=== PATIENT | female | born 1975 | race Caucasian/White ===

== ENCOUNTER 2017-01-06 22:29 | Emergency (ER) | payer OTHER ==
[~2017-01-06] VITALS: Ht 162.6 cm; Wt 59.0 kg
--- NOTE | 2017-01-06 23:45 | ED CARDIAC/CP/PALPITATIONS ---
History of Present Illness General Chief Complaint: Chest Pain Stated Complaint: PT HAVING A CHEST PAIN Source: patient Exam Limitations: no limitations Vital Signs & Intake/Output Vital Signs & Intake/Output Vital Signs Date Time Temp Pulse Resp B/P Pulse O2 O2 Flow FiO2 Ox Delivery Rate 01/07 0340 97.0 88 18 118/72 99 Room Air 01/06 2237 97.9 86 16 120/76 98 Room Air ED Intake and Output 01/07 0000 01/06 1200 Intake Total Output Total Balance Patient 130 lb Weight Allergies Coded Allergies: No Known Allergies (01/06/17) Triage Note: RECEIVED 41 YO FEMALE C/O UPPER ANTERIOR CHEST CRAMPING P[AIN, STARTED ABOUT 30 [address] [employer]ENT. PT REPORTS SOME SOB. NO NAUSEA, DIAPHORESIS Triage Nurses Notes Reviewed? yes Onset: Abrupt Duration: minute(s):, gone now Timing: single episode today Quality/Severity: moderate Location: central Radiation: no radiation Activities at Onset: none Modifying Factors: Improves With: rest. Associated Symptoms: pain with deep inspiration : No Patient currently breastfeeds: No HPI: 41 yo woman h/o celiac disease, in prior good health, presents with 20 minutes of substernal chest pain, approximately 30 minutes prior to arrival. She notes, "it was hard to catch my breath." The discomfort was "heavy," non radiating, without diaphoresis or syncopal symptoms. She arrived to ED chest pain free. Past History Travel History Traveled to [place] past 21 day No Medical History Any Pertinent Medical History? see below for history Neurological: NONE EENT: NONE Cardiovascular: NONE Respiratory: NONE Gastrointestinal: CELIAC DISEASE Hepatic: NONE Renal: NONE Musculoskeletal: NONE Psychiatric: NONE Endocrine: NONE Blood Disorders: NONE Cancer(s): NONE Surgical History Surgical History: none Psychosocial History What is your primary language Azeri Tobacco Use: Never used Family History Hx Contributory? No Employment History Past Employment History Unobtainable at this time Review of Systems Review of Systems Constitutional: Reports: no symptoms. EENTM: Reports: no symptoms. Respiratory: Reports: no symptoms. Cardiovascular: Reports: no symptoms. GI: Reports: no symptoms. Genitourinary: Reports: no symptoms. Musculoskeletal: Reports: no symptoms. Skin: Reports: no symptoms. Neurological/Psychological: Reports: no symptoms. Hematologic/Endocrine: Reports: no symptoms. Immunologic/Allergic: Reports: no symptoms. All Other Systems: Reviewed and Negative Physical Exam Physical Exam General Appearance: well developed/nourished, mild distress Head: atraumatic, normal appearance Eyes: Bilateral: normal appearance. Ears, Nose, Throat: normal pharynx, normal ENT inspection Neck: normal inspection, supple, full range of motion Respiratory: normal breath sounds, chest non-tender, no respiratory distress, quiet respiration, lungs clear Cardiovascular: regular rate/rhythm Gastrointestinal: normal bowel sounds, soft, non-tender, no organomegaly Back: normal inspection, normal range of motion Extremities: normal inspection, normal capillary refill, normal range of motion, no edema Neurologic/Psych: no motor/sensory deficits, awake, alert, oriented x 3 Skin: intact, normal color, warm/dry Core Measures ACS in differential dx? No Severe Sepsis Present: No Septic Shock Present: No Progress Differential Diagnosis: AMI, CHF/pulm edema, costochondritis, musculoskeletal pain, pneumonia, pulmonary embolism Plan of Care: Orders Procedure Date/time Status TROPONIN LEVEL 01/07 0200 Complete EKG 01/07 0200 Active TROPONIN LEVEL 01/061 Complete LIPASE 01/061 Complete HEPATIC FUNCTION PANEL 01/061 Complete HUMAN BETA HCG SCREEN 01/06 2311 Complete D-DIMER 01/06 2311 Complete CBC WITHOUT DIFFERENTIAL 01/061 Complete BASIC METABOLIC PANEL 01/06 2311 Complete AMYLASE 01/06 2311 Complete EKG 01/06 2233 Active Laboratory Tests 01/07/17 0231: Troponin I < 0.01 01/07/17 0000: Anion Gap 11, Estimated GFR > 60, BUN/Creatinine Ratio 18.6, Glucose 119 H, Calcium 9.2, Total Bilirubin 0.3, Direct Bilirubin 0, AST 16, ALT 23, Alkaline Phosphatase 55, Troponin I < 0.01, Total Protein 7.2, Albumin 4.1, Amylase 60, Lipase 183, Total Beta HCG NEGATIVE, D-Dimer 268 H, CBC w Diff NO MAN DIFF REQ, RBC 3.97 L, MCV 92.3, MCH 32.2 H, RDW 12.4, MPV 8.4, Gran % 69.4, Lymphocytes % 19.3 L, Monocytes % 10.1 H, Eosinophils % 1.1, Basophils % 0.1, Absolute Granulocytes 4.8, Absolute Lymphocytes 1.3, Absolute Monocytes 0.7 H, Absolute Eosinophils 0.1, Absolute Basophils 0, PUBS MCHC 34.9 Diagnostic Imaging: Viewed by Me: CT Scan. Discussed w/RAD: CT Scan. Radiology Impression: chest angio... punctate nodules... no PE Initial ED EKG: normal axis, normal intervals, normal p-waves, normal QRS complex, normal sinus rhythm Repeat EKG: unchanged Comments: PATIENT: LEONORA LI PRESENT AGE: 41 PATIENT ACCOUNT NO: [id number] : 74 LOCATION: [facility] ORDERING PHYSICIAN: WING LOCKE MD SERVICE DATE: 01/07/17 EXAM TYPE: CAT - CTA CHEST-PULMONARY EMBOLISM EXAMINATION: CT PULMONARY EMBOLISM STUDY CLINICAL INFORMATION: Chest pain. Positive d-dimer. COMPARISON: None. TECHNIQUE: Contiguous helical images of the chest were obtained following the administration of IV contrast. Multiplanar reconstructions were performed. MIPS were obtained and reviewed. DLP: 187 mGy-cm. CONTRAST: 71 mL of Optiray 350 were administered without incident. FINDINGS: The heart is of normal size. There is no pericardial effusion. The great vessels are unremarkable. Specifically, there is no pulmonary arterial filling defect. There is no CT evidence for pulmonary embolism. There are no chest wall masses. Review of lung windows demonstrates that there are neither pleural effusions nor pneumothoraces. There are no consolidations. Within each lung, there are numerous punctate nodular densities. Specifically, within the right upper lobe on image 132/431, there is a 2 mm nodular density. Within the anterior right middle lobe on image 232, there is a 3 mm nodule. Within the left upper lobe on image 113, there is a 2 mm nodular density. Limited evaluation of the upper abdomen demonstrates that the liver is of normal size and attenuation without focal lesions. Normal adrenal glands are identified. IMPRESSION: No CT evidence for pulmonary embolism. Several punctate nodular densities bilaterally. Various management parameters for solitary pulmonary nodules are in the literature. According to the Fleischner Society, recommendations for pulmonary nodules are as follows: Nodule size < or = to 4 mm in LOW RISK PATIENTS: No follow up needed. Nodule size < or = to 4 mm in HIGH RISK PATIENTS: Follow up CT at 12 months; if unchanged, no further follow up. Nodule size > 4-6 mm in LOW RISK PATIENTS: Follow up CT at 12 months; if unchanged, no further follow up. Nodule size > 4-6 mm in HIGH RISK PATIENTS: Initial follow up CT at 6-12 months, then at 18-24 months if no change. Nodule size > 6-8 mm in LOW RISK PATIENTS: Initial follow up CT at 6-12 months, then at 18-24 months if no change. Nodule size > 6-8 mm in HIGH RISK PATIENTS: Initial follow up CT at 3-6 months, then 9-12 months and 24 months if no change. Nodule size > 8 mm in LOW RISK PATIENTS: Follow up CT at around 3, 9, and 24 months, dynamic contrast-enhanced CT, PET, and/or biopsy. Nodule size > 8 mm in HIGH RISK PATIENTS: Same as for low-risk patients. DICTATED BY: KEV KWON MD DATE/TIME DICTATED:01/07/17146 CLASSIFICATION COUNSELOR:WENDY DATE/TIME TRANSCRIBED:01/07/17146 CONFIDENTIAL, DO NOT COPY WITHOUT APPROPRIATE AUTHORIZATION. <Electronically signed in Other Vendor System> SIGNED BY: KEV KWON MD 01/07/17 0158 Departure Departure Disposition: HOME OR SELF CARE Condition: Stable Clinical Impression Primary Impression: Chest pain Referrals: JAZMIN STOVER MD (PCP/Family) Departure Forms: Customer Survey General Discharge Information Comments 01/07/17, 3am - pt chest pain free in ED. troponin neg x 2, ct angio notable for pulmonary nodules... discussed at length with patient. She feels safe going home. She is low risk for coronary artery disease. 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 Close follow up advised. Critical Care Note Critical Care Note Critical Care Time: non-applicable
[2017-01-07 00:17] LABS: ABSOLUTE BASOPHIL COUNT 0 /CUMM (0.0-0.2); ABSOLUTE EOSINOPHIL COUNT 0.1 /CUMM (0.0-0.7); ABSOLUTE GRANULOCYTE CT 4.8 /CUMM (1.4-6.5); ABSOLUTE LYMPH COUNT 1.3 /CUMM (1.2-3.4); ABSOLUTE MONOCYTE COUNT 0.7 /CUMM (0.10-0.60); BASOPHIL % 0.1 % (0.0-2.0); EOSINOPHIL % 1.1 % (0-5); GRANULOCYTE % 69.4 % (42.2-75.2); HEMATOCRIT 36.6 % (37-47); MEAN CORPUSCULAR HGB 32.2 PG (27.0-31.0); MEAN CORPUSCULAR HGB CONC 34.9 G/DL (33.0-37.0); MEAN CORPUSCULAR VOLUME 92.3 FL (81.0-99.0); MEAN PLATELET VOLUME 8.4 FL (7.4-10.4); PLATELET COUNT 237 /CUMM (130-400); RBC DISTRIBUTION WIDTH 12.4 % (11.5-14.5); RED BLOOD CELL CT 3.97 /CUMM (4.20-5.40); WHITE BLOOD CELL COUNT 6.9 /CUMM (4.8-10.8)
--- NOTE | 2017-01-07 01:58 | CT SCAN REPORT ---
EXAMINATION: CT PULMONARY EMBOLISM STUDY CLINICAL INFORMATION: Chest pain. Positive d-dimer. COMPARISON: None. TECHNIQUE: Contiguous helical images of the chest were obtained following the administration of IV contrast. Multiplanar reconstructions were performed. MIPS were obtained and reviewed. DLP: 187 mGy-cm. CONTRAST: 71 mL of Optiray 350 were administered without incident. FINDINGS: The heart is of normal size. There is no pericardial effusion. The great vessels are unremarkable. Specifically, there is no pulmonary arterial filling defect. There is no CT evidence for pulmonary embolism. There are no chest wall masses. Review of lung windows demonstrates that there are neither pleural effusions nor pneumothoraces. There are no consolidations. Within each lung, there are numerous punctate nodular densities. Specifically, within the right upper lobe on image 132/431, there is a 2 mm nodular density. Within the anterior right middle lobe on image 232, there is a 3 mm nodule. Within the left upper lobe on image 113, there is a 2 mm nodular density. Limited evaluation of the upper abdomen demonstrates that the liver is of normal size and attenuation without focal lesions. Normal adrenal glands are identified. IMPRESSION: No CT evidence for pulmonary embolism. Several punctate nodular densities bilaterally. Various management parameters for solitary pulmonary nodules are in the literature. According to the Fleischner Society, recommendations for pulmonary nodules are as follows: Nodule size < or = to 4 mm in LOW RISK PATIENTS: No follow up needed. Nodule size < or = to 4 mm in HIGH RISK PATIENTS: Follow up CT at 12 months; if unchanged, no further follow up. Nodule size > 4-6 mm in LOW RISK PATIENTS: Follow up CT at 12 months; if unchanged, no further follow up. Nodule size > 4-6 mm in HIGH RISK PATIENTS: Initial follow up CT at 6-12 months, then at 18-24 months if no change. Nodule size > 6-8 mm in LOW RISK PATIENTS: Initial follow up CT at 6-12 months, then at 18-24 months if no change. Nodule size > 6-8 mm in HIGH RISK PATIENTS: Initial follow up CT at 3-6 months, then 9-12 months and 24 months if no change. Nodule size > 8 mm in LOW RISK PATIENTS: Follow up CT at around 3, 9, and 24 months, dynamic contrast-enhanced CT, PET, and/or biopsy. Nodule size > 8 mm in HIGH RISK PATIENTS: Same as for low-risk patients.
[2017-01-07 03:40] VITALS: BP 118/72
== END 2017-01-07 03:40 ==
LOC: ERH 22:29
PROVIDERS: Pediatrics
DX: R07.89 Other chest pain (principal)
CPT/HCPCS: 93005; 93010